=== PATIENT | male | born 1975 | race Caucasian/White ===

== ENCOUNTER 2022-12-15 18:56 | Emergency (ER) | payer OTHER, MEDICAID, SELFPAY ==
[2022-12-15 18:59] VITALS: BP 196/104; PULSE 69; RESP 15; TEMP 36.9; O2SAT 98; BMI 19.2
--- NOTE | 2022-12-15 19:15 | ED.GENADULT ---
HPI - General Adult General Chief complaint: Eye Problems Stated complaint: Thinks detached retina Time Seen by Provider: 12/15/22 19:15 Source: patient Mode of arrival: Ambulatory History of Present Illness HPI narrative: 47-year-old gentleman with a history of type 1 diabetes with retinopathy sees a retinal specialist, Dr. Gordillo and routinely receives intraorbital injections. Notes that his mother on December 11 after difficult last few months struggling with cancer. Because of this he is had difficulty with controlling his blood sugars with lots of low numbers. 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 He notes that his sugars are consistently in the 203 100 range occasional dips down into the 30 range. Describes no fever, cough, chills. Three days ago he woke up with his left eye feeling like he was developing floaters. Typically when this has happened previously, symptoms have resolved within a day or so. He is noticed over the intervening 3 days that he is having increasing haziness and feels like there is something over the surface of his eye with a Kacy feeling over the surface of his eye. He is having intermittent pain and pressure not significant enough that it is causing headaches requires pain medication. Related Data Home Medications Medication Instructions Recorded Confirmed gabapentin 600 mg PO BID 05/15/18 07/20/19 humalog SUBCUT 05/15/18 07/20/19 insulin glargine 100 unit/mL 30 unit SUBCUT DAILY 05/15/18 07/20/19 subcutaneous solution (Lantus U-100 Insulin) Previous Rx's Medication Instructions Recorded tramadol 50 mg tablet See Rx Instructions PO .COMPLEX 07/20/19 PRN pain #30 tabs Allergies Allergy/AdvReac Type Severity Reaction Status Date / Time NSAIDS (Non-Steroidal AdvReac Intermediate Verified 12/15/22 18:59 Anti-Inflamma Review of Systems Review of Systems Narrative: Remainder of complete review of systems is otherwise unremarkable except for that included in the HPI. Patient History Medical History (Updated 12/15/22 @ 20:21 by Katja Palacios MD) Type 1 diabetes Social History Smoking Status: Former smoker Smoking Status: Former smoker alcohol intake frequency: holidays/special occasions only Substance Use Type: does not use Exam Initial Vital Signs Initial Vital Signs: Vital Signs Temperature 98.4 F 12/15/22 18:59 Pulse Rate 69 12/15/22 18:59 Respiratory Rate 15 12/15/22 18:59 Blood Pressure 196/104 H 12/15/22 18:59 Pulse Oximetry 98 12/15/22 18:59 Oxygen Delivery Method Room Air 12/15/22 18:59 General: Alert appropriate in no acute distress eye exam: He does not have his regular glasses with him and typically does use some for distance. His vision in the left eye is able to see only the E on the eye chart. His right eye is at its baseline. There is no scleral injection. On funduscopic exam right eye has a fairly crisp macula and visible vessels without obvious bleeding. On the left eye, I am unable to distinguish vessels with a gradient of retinal erythema from light red down to very dark red almost black at the base of the retina. I can not see his macula. Due to technical difficulties, I am unable to ascertain intra-ocular pressure in the emergency department today. Respiratory: Able to speak in full sentences, no obvious respiratory distress Skin: No obvious rashes, warm and dry Neurologic: Grossly intact no obvious asymmetries or abnormalities Psych: appropriate insight and affect, cooperative Course Orders Ordered: Discontinued Medications Fluorescein Sodium (Fluorescein 1 Mg Strip) 1 mg EYE-LEFT NOW ONE Stop: 12/15/22 19:36 Last Admin: 12/15/22 19:57 Dose: 1 mg Documented By: TUCKER Proparacaine HCl (Proparacaine 0.5% Ophth Carmen) 1 drops EYE-LEFT NOW ONE Stop: 12/15/22 19:56 Last Admin: 12/15/22 19:57 Dose: 1 drops Documented By: TUCKER Tetracaine HCl (Tetracaine 0.5% Ophth Drops 4 Ml) 1 drops EYE-LEFT Q5MIN PRN PRN Reason: Pain, Mild (1-3) Vital Signs Vital signs: Vital Signs - 8 hr 12/15/22 18:59 Temperature 98.4 F Pulse Rate 69 Respiratory Rate 15 Blood Pressure 196/104 H Pulse Oximetry 98 Oxygen Delivery Method Room Air Medical Decision Making MDM Narrative Medical decision making narrative: CC: left eye irritation with decreased vision Complicating co-morbidities: type 1 diabetes with retinopathy Data collected from: patient, Social determinants of health that may influence the patients condition: of his mother 4 days ago, difficulty controlling blood sugars with recent social stressors Medical records reviewed: no medical records available for review Differential considered: vitreousl hemorrhage, retinal detachment, acute angle closure glaucoma, anterior uveitis, conjunctivitis, Exam documented above, pertinent findings include: layering level of erythema on retinal exam left eye. No significant pain or erythema to the eye, decreased vision with a sense of haziness and able to only determine the E on standard eye exam Lab Test not required with this visit Consultations: Dr Osman Gordillo MD [facility] [phone] Discussion [address] Gordillo. Likely vitreous hemorrhage, not urgent. [phone] Discussion: care is reviewed with his retinal specialist. If this is a vitreous hemorrhage there is not much to be done and he can certainly see the patient next week in [place] where he typically sees him. If there is increasing pain than he would like to see him sooner for better eye pressure testing and further evaluation at could do so in [place] tomorrow. Will review both of these options with the patient. At this point is alert, appropriate and safe for discharge home Discharge Plan Departure Patient Disposition: Home Clinical Impression: Retinal hemorrhage Qualifiers: Laterality: left Qualified Code(s): H35.62 - Retinal hemorrhage, left eye Activity Restrictions/Additional Instructions: thank you for coming in today after talking with your post doc fellowship, I am concerned that you have had bleeding into the back of your eye to cause your current symptoms. If that does not to be the case, there is no immediate additional action that needs to be done and Dr. Grodillo can see you on Monday in [facility]. If you are having increasing pain, the concern for glaucoma and intra-ocular pressure is significant. Unfortunately I was not able to measure pressure in the emergency department due to technical difficulties. The pain is worse you can contact Dr. Gordillo and he can see you tomorrow in [place]. Either way you need to contact him at [phone] to arrange for urgent follow-up. If you find that you are getting worse or develop any new symptoms, please feel free to return to the emergency department for further evaluation. Prescriptions: No Action insulin glargine [Lantus U-100 Insulin] 100 unit/mL solution 30 unit SUBCUT DAILY gabapentin 600 mg PO BID humalog SUBCUT tramadol 50 mg tablet See Rx Instructions PO .COMPLEX PRN (Reason: pain) Qty: 30 0RF Rx Instructions: 50-100mg PO Q4-6H PRN; Stand Alone Forms: Patient Portal/API
[2022-12-15] MEDS: PROPARACAINE 0.5% OPHTH SOL 1 DROPS EYE-LEFT (19:57)
[2022-12-15] MEDS: FLUORESCEIN 1 MG STRIP EYE-LEFT (19:57)
== END 2022-12-15 20:31 | disposition home or self-care (01) ==
PROVIDERS: Emergency Provider Emergency Medicine
DX: H35.62 Retinal hemorrhage, left eye (principal); E10.9 Type 1 diabetes mellitus without complications
CPT/HCPCS: 99282